=== PATIENT | male | born 1955 | race Caucasian/White ===

== ENCOUNTER 2016-03-20 09:03 | Outpatient (CLI) ==
[2015-03-29 13:17] VITALS: BMI 28.0
--- NOTE | 2016-03-21 08:17 | MRI ---
EXAM: Lumbar spine MRI with and without intravenous contrast. HISTORY: Peripheral neuropathic pain. COMPARISON: Lumbar spine CT scan 03/24/[address] abdomen and pelvis 03/24/2015. TECHNIQUE: Multiplanar, multisequence MR images were acquired of the lumbar spine before and after administration of intravenous contrast. FINDINGS: Five lumbar-type vertebra are present. There is mild mid lumbar levoscoliosis and mild l oss of the usual smooth lumbar lordosis. There is a 2 mm retrolisthesis of L3 on L4 and a trace ret rolisthesis of L4 on L5 and L5 on S1. The lumbar vertebra are normal in height and intrinsic bone ma rrow signal is mildly heterogeneous. Ventral and lateral osteophytes are present in the lumbar spin e and there is mild disc space narrowing and disc desiccation at L3-4 and L4-5 and posterior disc sp ling narrowing and disc desiccation at L5-S1. There is mild disc desiccation and L2-3. There is kyle tral spondylosis from T12-L1 through L3-4 with reactive marrow changes along the superior endplates of L1 through L4. Conus medullaris ends at T12-L1 and is without syrinx. There is no abnormal lept omeningeal contrast enhancement. 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 The visualized liver, spleen, the medial kidneys bilaterally are unremarkable. There are no paraver tebral masses. T12-L1: The intervertebral disc is normal. L1-2: There is a mild disc bulge with marginal osteophytes that is asymmetric to the left which min imally narrows the inferior left neural foramen. There is no central canal stenosis or foraminal st enosis. L2-3: There is a mild to moderate disc bulge that is asymmetric to the left with small left far lat eral endplate osteophytes and a probable small central disc protrusion and enhancing annular fissure . The right L2 transverse process fracture demonstrated on the comparison CT from 03/24/2015 is no longer identified and may be healed. There is mild bilateral hypertrophic facet arthropathy and liga mentum flavum hypertrophy. In this patient with a developmentally narrow canal, there is mild to mo derate spinal stenosis and mild bilateral foraminal stenosis, greater on the left. AP diameter of th e thecal sac is 7 mm. L3-4: There is a mild to moderate disc bulge that is asymmetric to the right with a small central and right posterolateral disc extrusion and enhancing annular fissure, small right far lateral endpl ate osteophytes, degenerative endplate changes and small chronic Schmorl's nodes along the right lat eral endplates with reactive dark STIR signal sclerosis. This effaces the ventral thecal sac. Mild bilateral hypertrophic facet arthropathy and ligamentum flavum hypertrophy is present and there is m oderate spinal stenosis and mild to moderate bilateral foraminal stenosis. AP diameter of the theca l sac is 5.3 mm. L4-5: There is a mild to moderate disc bulge with small right far lateral endplate osteophytes and a small central disc extrusion that extends below the disc level. Mild to moderate right and mild l eft hypertrophic facet arthropathy and ligamentum flavum hypertrophy is present. There is moderate spinal stenosis and mild to moderate left and moderate right neural foraminal stenosis with encroach ment on the right L4 nerve and left lateral recess stenosis with encroachment on the left L5 nerve r oots. AP diameter of the thecal sac is 6.1 mm. L5-S1: There is a mild disc bulge and small bilateral far lateral endplate osteophytes, larger on t he left. There is a superimposed small right posterolateral disc extrusion that posteriorly displac es the right S1 nerve and mildly effaces the right ventral thecal sac. Mild bilateral hypertrophic facet arthropathy and ligamentum flavum hypertrophy is present. There is mild to moderate spinal st enosis, right lateral recess stenosis and severe left and moderately severe right neural foraminal s tenosis with encroachment on both L5 nerves. AP diameter of the thecal sac is 7.3 mm. IMPRESSION: 1. Moderate lumbar degenerative spondylosis. 2. Mild to moderate L2-3 and L5-S1 and moderate L3-4 and L4-5 spinal stenosis. 3. Small central right posterolateral disc extrusion L3-4, small central disc extrusion L4-5 and sm all right posterolateral disc extrusion L5-S1. 4. Multilevel foraminal stenosis.
== END 2016-03-20 09:04 | disposition home or self-care (01) ==
LOC: RAD 09:03
PROVIDERS: ATTEND Physician Assistant
DX: M79.2 Neuralgia and neuritis, unspecified (principal)

== ENCOUNTER 2016-09-01 16:19 | Outpatient (CLI) ==
[2015-03-29 13:17] VITALS: BMI 28.0
[2016-09-01 16:37] LABS: BASOPHILS % (AUTO) 0.4 % (0.0-3.0); EOSINOPHILS # (AUTO) 0.6 K/ul (0.0-0.7); EOSINOPHILS % (AUTO) 6.7 % (0.0-7.0); HEMATOCRIT 42.7 % (42.0-52.0); HEMOGLOBIN 14.9 g/dl (14.0-18.0); IMMATURE GRANULOCYTE % (AUTO) 0.4 % (0.0-5.0); LYMPHOCYTES # (AUTO) 2.2 K/uL (0.60-3.4); LYMPHOCYTES % (AUTO) 26.6 (10.0-50.0); MEAN CORPUSCULAR HEMOGLOBIN 30.3 pg (27.0-31.0); MEAN CORPUSCULAR HGB CONC 34.9 (31.8-35.4); MEAN CORPUSCULAR VOLUME 86.8 fl (80.0-94.0); MONOCYTES # (AUTO) 0.7 K/uL (0.4-2.0); MONOCYTES % (AUTO) 8.4 (0-10); NEUTROPHILS # (AUTO) 4.8 K/ul (2.0-6.9); NEUTROPHILS % (AUTO) 57.5; PLATELET COUNT 175 10^3/uL (140-440); RED BLOOD COUNT 4.92 10^6/ul (4.70-6.10); WHITE BLOOD COUNT 8.31 K/ul (4.2-10.2)
[2016-09-01 17:09] LABS: ALBUMIN 3.8 g/dL (3.4-5.0); ALBUMIN/GLOBULIN RATIO 1.09; ANION GAP 15.4; BILIRUBIN,TOTAL 0.49 mg/dL (0.00-1.20); BUN/CREATININE RATIO 18.29; CALCIUM 9.2 mg/dL (8.2-10.2); CHOL/HDL RATIO 4.8 (4.5-6.4); CREATININE 0.82 mg/dL (0.60-1.10); POTASSIUM 4.4 mmol/L (3.5-5.1); TOTAL PROTEIN 7.3 g/dL (6.4-8.2)
== END 2016-09-01 16:20 | disposition home or self-care (01) ==
LOC: LAB 16:19
PROVIDERS: ATTEND Physician Assistant
DX: I10 Essential (primary) hypertension (principal)
CPT/HCPCS: 36415; 80053; 80061; 85025

== ENCOUNTER 2017-10-04 16:13 | Outpatient (CLI) ==
[2015-03-29 13:17] VITALS: BMI 28.0
--- NOTE | 2017-10-04 16:59 | DI ---
Exam: Six views of the cervical spine. Comparison: CT cervical spine performed 03/24/2015. Reason for exam: Paresthesia. FINDINGS: No new vertebral body height loss is seen. No obvious fracture or malalignment. There is multilevel degenerative disease with intervertebral body disc space height loss and facet hypertroph y with foraminal narrowing. The cervical lordotic curve is well maintained. The prevertebral soft ti ssues are within normal limits. The dens appears intact on the open-mouth odontoid view. Impression: 1. No obvious fracture is seen in the cervical spine. 2. Moderate multilevel degenerative disease with intervertebral body disc space height loss and face t hypertrophy with osteophyte formation. If clinical concern exists for radiculopathy, myelopathy, M RI may be performed for further characterization.
== END 2017-10-04 16:14 | disposition home or self-care (01) ==
LOC: RAD 16:13
PROVIDERS: ATTEND Physician Assistant
DX: R20.2 Paresthesia of skin (principal)

== ENCOUNTER 2017-10-30 06:16 | Outpatient (CLI) ==
[2015-03-29 13:17] VITALS: BMI 28.0
--- NOTE | 2017-10-31 09:22 | ECHOSTRESS ---
Date of Exam: 10/30/17 Ordering Physician: DOREEN SUTTON APRN Reason for Echo: CHEST PAIN, STRESS TEST--NO ISCHEMIA M-Mode Normal Adult Results LV Dimensions Normal Adult Results AoV Opening excursions >1.6 LVEDD-base- 3.5-5.8 Ao root dimensions 2.0-3.7 LVESD-base- 3.1-4.6 L. Atrium dimensions 1.9-3.8 Post. Wall thickness 0.8-1.1 IV septum (thickness) 0.7-1.2 Post. Wall excursion 0.72-1.3 Septal motion Systolic motion R. Ventricular cavity 1.5-2.0 LVEF 60% Paradoxical septal wall motion 2-D: NORMAL LEFT VENTRICULAR CONTRACTILITY--RESTING AND POST EXERCISE M-MODE: MV: AV: TV: PV: CHAMBER SIZE: WALL MOTION: NORMAL LEFT VENTRICULAR CONTRACTILITY--RESTING AND POST EXERCISE PERICARDIUM: INTERPRETATION: 1. NORMAL LEFT VENTRICULAR CONTRACTILITY--RESTING AND POST EXERCISE MTDD
--- NOTE | 2017-10-31 09:31 | STRESSECHO ---
Date of Test: 10/30/17 Ordering Physician: DOREEN SUTTON APRN Occupation: CONSTRUCTION Reason for Exam: CHEST PAIN, HTN Smoking History: 20 PK YRS Height: 69" Weight: 197 LBS Current Medications: LISINOPRIL, ASA, STATINS Resting EKG: SINUS RHYTHM/ LVH Target Heart Rate: 136/160 S-T SEGMENT STAGE MPH/GRADE HEART RATE BPM BLOOD PRESSURE MMHG RHYTHM +/- ELEVATION DEPRESSION SYMPTOMS,COMMENTS AT REST 60 132/80 SR X NONE 1 1.7/10% 108 152/80 SR X NONE 2 2.5/12% 120 160/78 SR X NONE 3 3.4/14% 4 4.2/16% 5 5.0/18% Immediately After 125 SR X SHORT OF BREATH Minutes Post Exercise 5:00 70 152/80 SR X NO COMMENTS Minutes Post Exercise DURATION OF EXERCISE: 6:25 MAXIMUM HEART RATE REACHED: 125 BPM REASON FOR TERMINATION: SHORT OF BREATH 94% OXYGEN SATURATION WITH EXERCISE ON ROOM AIR METS 8.0 INTERPRETATION: 1. NO EVIDENCE OF ISCHEMIC ST-T WAVE CHANGES 2. NO CHEST PAIN OR DISCOMFORT 3. FEW PAC'S WITH EXERCISE 4. BLOOD PRESSURE RESPONSE: ADEQUATE ALFRED LEFT VENTRICULAR CONTRACTILITY--RESTING AND POST EXERCISE MTDD
== END 2017-10-30 06:17 | disposition home or self-care (01) ==
LOC: CAR 06:16
PROVIDERS: ATTEND Physician Assistant
DX: R07.9 Chest pain, unspecified (principal)
CPT/HCPCS: 93005; 93010

== ENCOUNTER 2017-11-05 08:18 | Outpatient (CLI) | payer OTHER ==
[2015-03-29 13:17] VITALS: BMI 28.0
--- NOTE | 2017-11-05 12:49 | DI ---
EXAM: Double contrast esophagram. History: Dysphagia. Technique: Patient was given gas crystals. Oral barium was then given in multiple spot films of the esophagus and gastroesophageal junction were obtained in various projections. Findings: The course and caliber of the esophagus are within normal limits. No mucosal lesions or filling defe cts identified. The gastroesophageal junction is patent. With Valsalva maneuver, a small hiatal her loni was seen. Gastroesophageal reflux was observed. A few episodes of esophageal spasm were also obs erved. Impression: 1. Small inconsistent hiatal hernia and gastroesophageal reflux. 2. Esophageal spasm was observed
== END 2017-11-05 08:19 | disposition home or self-care (01) ==
LOC: RAD 08:18
PROVIDERS: ATTEND Physician Assistant
DX: R13.10 Dysphagia, unspecified (principal)